=== PATIENT | male | born 1995 | race Caucasian/White ===

== ENCOUNTER 2021-01-24 08:50 | Emergency (ER) | payer BC, SELFPAY ==
[2021-01-24 08:53] VITALS: BP 126/68; PULSE 82; RESP 18; TEMP 36.9; O2SAT 99; BMI 23.1
--- NOTE | 2021-01-24 09:57 | ED.GENADULT ---
HPI - General Adult General Chief complaint: Overdose Stated complaint: overdose/narcan administered - lightheaded Time Seen by Provider: 01/24/21 09:14 Source: patient Mode of arrival: ambulatory Limitations: no limitations History of Present Illness HPI narrative: 25 yold male with pmh of drug abuse presents to the ED for overdose. Patient had overdose from heroine, cocaine, alcohol around 04:00am at his home and was given Narcan. Patient came to the ED to be evaluated. Patient brought by family member has been alert oriented x3 for the past 5 hours. Patient states he has been clean from hard drugs for the past 8 years but had a relapse. patient states being stressed but denies any suicidal/homicidal ideation. Patient still struggles with alcohol abuse and was recently detoxed. Related Data Allergies Allergy/AdvReac Type Severity Reaction Status Date / Time No Known Allergies Allergy Unverified 11/17/19 16:31 Review of Systems Review of Systems: Yes all other systems are reviewed and are negative Constitutional: Constitutional: Reports as per HPI and Reports no additional constitutional complaints Eyes: Eyes: Reports as per HPI and Reports no additional eye complaints ENT: Reports system reviewed and no additional complaints, except as documented and Reports as per HPI Cardiovascular: Cardiovascular: Reports as per HPI and Reports no additional cardiovascular complaints Respiratory: Respiratory: Reports as per HPI and Reports no additional respiratory complaints Gastrointestinal: Gastrointestinal: Reports as per HPI and Reports no additional gastrointestinal complaints Genitourinary: Genitourinary: Reports no additional male genitourinary complaints and Reports as per HPI Musculoskeletal: Musculoskeletal: Reports no additional musculoskeletal complaints and Reports as per HPI Integumentary/Breasts: Skin/Breast: Reports system reviewed and no additional complaints, except as docu and Reports as per HPI Neurologic: Reports system reviewed and no additional complaints, except as documented and Reports as per HPI Psychiatric: Psychiatric: Reports no additional psychiatric complaints and Reports as per HPI [facility] Past Medical History Medical History (Updated 01/24/21 @ 09:55 by Maxine Jin) No known health problems Social History Social History Alcohol intake: never Smoked in Last 30 Days: No Use of substances other than those prescribed or required for medical reasons: No Advance Directives: No Advance Directives Information Provided: No Physical Exam Vital Signs: Vital Signs: Last Vital Signs Temp 98.5 F 01/24/21 08:53 Pulse 82 01/24/21 08:53 Resp 18 11/25/21 08:53 BP 126/68 01/24/21 08:53 Pulse Ox 99 01/24/21 08:53 Body Mass Index 23.1 Const: General: cooperative, healthy appearing, comfortable, no acute distress, well developed, alert, awake, Physically active and acute distress Orientation/consciousness: patient oriented x3 HENMT: Head: Yes normal to inspection, Yes No palpable skull fracture present, Yes normocephalic, Yes atraumatic, No abrasion, No Acrocyanosis present, No Echols's sign, No contusion, No cranial bruits, No hematoma, No laceration, No occipital foramen tenderness, No palpable skull fracture, No raccoon eyes, No scalp lesion, No scalp tenderness, No Temporal artery tenderness present and No periorbital ecchymosis Eyes: General: appearance normal, both eyes and all related structures Neck: Neck: Yes normal visual inspection, Yes full ROM, Yes no lymphadenopathy, Yes no meningeal signs, Yes trachea midline, Yes supple, No anterior neck swelling and No tender Chest: Chest palpation & inspection: normal inspection of the chest and normal palpation of entire chest wall Resp: Effort & Inspection: normal respiratory effort and able to speak in complete sentences Auscultation: clear to auscultation bilaterally Cardio: Jugular venous distension: no JVD Heart sounds: S1 normal heart sound present and S2 normal heart sound present GI: Inspection: Yes normal to inspection and No abdominal wall ecchymosis Palpation (GI): Soft to palpation, not firm, nontender, no guarding and not rigid : General: No CVA tenderness and Yes no CVA tenderness Back/Spine/Pelvis: Back: no CVA tenderness, No CVA tenderness and No back tenderness Skin: General skin exam: no rashes or lesions noted and elasticity normal Neuro: Other: Negative facial droop. Negative slurred speech. All extremities equal strength 5+. [id number] and rapid hand movement intact. Negative pronator drift. General: patient oriented x3, gait normal, no meningeal signs and CN's II-XI intact bilaterally Cranial nerves: Yes CN's II-XII intact bilaterally Extrem: General: Yes normal to inspection and Yes full ROM Psych: Appearance: grossly normal, well kempt and not disheveled Course Course Course Narrative: Patient vital signs are stable. Patient is alert oriented x3. Negative for any neuro deficits. No further medical evaluation evaluated needed. It was discussed with patient her to speak to care team or chemical recovery operator for resources for detox and outpatient program to prevent other relapse since patient was doing good for the past 8 years. Patient agreeable to plan. Patient ate food drink water. Reevaluation(s) Reevaluation #1: Patient states he no longer wanted to wait for care team or chemical recovery operator. Patient walked out the ED with family member. Patient eloped. Patient is not suicidal/ homicidal. Patient eloped before the discharge papers were prepared and given Narcan to go home with. Time: 10:30 Medical Decision Making MDM Narrative Medical decision making narrative: Overdose Discharge Plan Discharge Clinical Impression: Overdose Patient Disposition: Elopement Interventions: ED Discharge Assessment Last Done: 01/24/21 09:42 Discharge Date/Time: 01/24/21 09:55
== END 2021-01-24 09:55 | disposition left against medical advice (07) ==
PROVIDERS: Emergency Provider Emergency Medicine
DX: T40.1X1A Poisoning by heroin, accidental (unintentional), initial encounter (principal); T40.5X1A Poisoning by cocaine, accidental (unintentional), initial encounter; T51.0X1A Toxic effect of ethanol, accidental (unintentional), initial encounter; Y92.9 Unspecified place or not applicable; F11.10 Opioid abuse, uncomplicated; F14.10 Cocaine abuse, uncomplicated; Z71.51 Drug abuse counseling and surveillance of drug abuser; Z79.899 Other long term (current) drug therapy
CPT/HCPCS: 99284